=== PATIENT | female | born 1955 | race American Indian/Alaskan Native ===

== ENCOUNTER 2018-12-18 15:52 | Inpatient (IN) | payer MEDICAID ==
--- NOTE | 2018-12-18 17:35 | Event Note ---
ED Screening Note Date of service: 12/18/18 Time: 17:32 ED Screening Note: 63 y/o female comes in for right side abd pain. It started on the left side now migrated to the right. Has n/v. Has been out of her blood thinner. This initial assessment/diagnostic orders/clinical plan/treatment(s) is/are subject to change based on patients health status, clinical progression and re- assessment by fellow clinical providers in the ED. Further treatment and workup at subsequent clinical providers discretion. Patient/guardian urged not to elope from the ED as their condition may be serious if not clinically assessed and managed. Initial orders include:
[2018-12-18 18:13] LABS: Eosinophils # (Auto) 0.1 K/mm3 (0.0-0.4); Eosinophils % (Auto) 1.9 % (0.0-4.3); Lymphocytes # (Auto) 1.4 K/mm3 (1.2-5.4); Monocytes # (Auto) 0.4 K/mm3 (0.0-0.8); Monocytes % (Auto) 7.9 % (0.0-7.3)
[2018-12-18 18:28] LABS: Basophils % (Auto) 1.2 % (0.0-1.8); Hematocrit 47.1 % (30.3-42.9); Hemoglobin 15.3 gm/dl (10.1-14.3); Mean Corpuscular HGB Conc 33 % (30-34); Mean Corpuscular Volume 88 fl (79-97); Red Blood Count 5.36 M/mm3 (3.65-5.03); Red Cell Distribution Width 15.5 % (13.2-15.2)
[2018-12-18 19:25] LABS: Platelet Count 267 K/mm3 (140-440)
[2018-12-18 19:31] LABS: Bilirubin,Urine NEG (Negative); Blood,Urine NEG (Negative); Color,Urine Straw (Yellow); Protein,Urine <15 mg/dL mg/dL (Negative); Urobilinogen,Urine < 2.0 mg/dL (<2.0); WBC,Urine < 1.0 /HPF (0.0-6.0)
[2018-12-18 19:37] LABS: Amphetamine Screen,Urine PRESUMPTIVE NEGATIVE; Benzodiazepines Screen,Urine PRESUMPTIVE NEGATIVE; Cannabinoid Screen,Urine PRESUMPTIVE NEGATIVE; Cocaine Screen,Urine PRESUMPTIVE NEGATIVE; Methadone Screen,Urine PRESUMPTIVE NEGATIVE; Opiate Screen,Urine PRESUMPTIVE NEGATIVE
[2018-12-18] MEDS ORDERED: FAMOTIDINE 20 MG/2 ML INJ IV ONE (19:59)
[2018-12-18] MEDS ORDERED: ONDANSETRON 4 MG/2 ML INJ IV ONE (19:59)
[2018-12-18] MEDS ORDERED: DICYCLOMINE 20 MG TAB PO ONE (20:00)
[2018-12-18 20:12] LABS: Alanine Aminotransferase 20 units/L (7-56); Albumin 4.1 g/dL (3.9-5); BUN/Creatinine Ratio 22; Blood Urea Nitrogen 11 mg/dL (7-17); Calcium 9.1 mg/dL (8.4-10.2)
--- NOTE | 2018-12-18 21:32 | XRay Report ---
CHEST 2 VIEWS INDICATION / CLINICAL INFORMATION: chest pain. COMPARISON: None available. FINDINGS: SUPPORT DEVICES: None. HEART / MEDIASTINUM: No significant abnormality. LUNGS / PLEURA: Mild pulmonary vascular congestion. No evidence of pneumonia or significant pleural e ffusion. No pneumothorax. ADDITIONAL FINDINGS: No significant additional findings. IMPRESSION: 1. Mild pulmonary vascular congestion. Signer Name: Rita Zapien MD Signed: 12/18/2018 9:28 PM Workstation Name: [id number]
--- NOTE | 2018-12-19 00:47 | Ultrasound Report ---
ULTRASOUND ABDOMEN, LIMITED (RIGHT UPPER QUADRANT) INDICATION / CLINICAL INFORMATION: RUQ Pain. COMPARISON: None available. FINDINGS: PANCREAS: Visualized portion shows no significant abnormality. LIVER: No significant abnormality. GALLBLADDER: Several gallstones in the gallbladder with mild gallbladder wall thickening. BILE DUCTS: No significant abnormality. Common bile duct measures 1.1 mm. FREE FLUID: None. ADDITIONAL FINDINGS: None. IMPRESSION: 1. Cholelithiasis with mild gallbladder wall thickening. Signer Name: Holly Harden MD Signed: 12/19/2018 12:42 AM Workstation Name: [id number]
--- NOTE | 2018-12-19 01:56 | Emergency Department Report ---
<BEATRICE PENNY - Last Filed: 12/19/18 02:46> ED Abdominal Pain HPI - General Chief Complaint: Abdominal Pain Stated Complaint: RT SIDE/ABD PAIN/VOMITING Time Seen by Provider: 12/18/18 17:32 Source: patient Mode of arrival: Ambulatory Limitations: No Limitations - History of Present Illness Initial Comments: Patient is a 63-year-old [place] female with a history of hypertension who presents to the ED with complaint of acute onset persistent severe right upper quadrant pain with nausea and vomiting for the last 1 week, worse in the last 24 hours. Patient states that the pain is worse with food, and that it radiates to the right flank. Patient denies fever, chills, dizziness, chest pain, shortness of breath, back pain, change in vision, diarrhea, nasal and sinus congestion or cough. MD Complaint: abdominal pain, other (nausea and vomiting) -: Sudden, week(s) (1) Location: RUQ Radiation: RUQ, R flank Migration to: no migration Severity scale (0 -10): 7 Quality: aching, sharp Consistency: constant Improves With: nothing Worsens With: eating, vomiting Associated Symptoms: denies other symptoms, nausea, vomiting. denies: diarrhea, fever, chills, constipation, dysuria, hematemesis, hematochezia, melena, anorexia, syncope - Related Data Home Medications Medication Instructions Recorded Confirmed Last Taken Cyclobenzaprine [Flexeril] 10 mg PO BID 12/19/18 12/19/18 Unknown Ferrous Sulfate [Iron 325 MG] 325 mg PO BID 12/19/18 12/19/18 Unknown Gabapentin [Neurontin] 600 mg PO TID 12/19/18 12/19/18 Unknown Pantoprazole [Protonix] 40 mg PO BID 12/19/18 12/19/18 Unknown Rivaroxaban [Xarelto] 20 mg PO QDAY 12/19/18 12/19/18 Unknown Allergies Allergy/AdvReac Type Severity Reaction Status Date / Time ibuprofen Allergy Unknown Verified 12/18/18 17:36 ED Review of Systems Constitutional: denies: chills, fever Eyes: denies: eye pain, eye discharge, vision change ENT: denies: ear pain, throat pain Respiratory: denies: cough, shortness of breath, wheezing Cardiovascular: denies: chest pain, palpitations Endocrine: no symptoms reported Gastrointestinal: abdominal pain, nausea, vomiting. denies: diarrhea Genitourinary: denies: urgency, dysuria, discharge Musculoskeletal: denies: back pain, joint swelling, arthralgia Skin: denies: rash, lesions Neurological: denies: headache, weakness, paresthesias Psychiatric: denies: anxiety, depression Hematological/Lymphatic: denies: easy bleeding, easy bruising ED Past Medical Hx - Past Medical History Hx Hypertension: Yes Hx GERD: Yes Hx Psychiatric Treatment: Yes (drug abuse, h/o crack cocaine use) Additional medical history: chronic back pain, bilateral leg problem, DVT'S,anemia,neuropathy, - Surgical History Past Surgical History?: Yes Additional Surgical History: tubiligation, right ovary, abd abscess - Social History Smoking Status: Current Every Day Smoker - Medications Home Medications: Home Medications Medication Instructions Recorded Confirmed Last Taken Type Cyclobenzaprine [Flexeril] 10 mg PO BID 12/19/18 12/19/18 Unknown History Ferrous Sulfate [Iron 325 MG] 325 mg PO BID 12/19/18 12/19/18 Unknown History Gabapentin [Neurontin] 600 mg PO TID 12/19/18 12/19/18 Unknown History Pantoprazole [Protonix] 40 mg PO BID 12/19/18 12/19/18 Unknown History Rivaroxaban [Xarelto] 20 mg PO QDAY 12/19/18 12/19/18 Unknown History ED Physical Exam - General Limitations: No Limitations General appearance: alert, in no apparent distress - Head Head exam: Present: atraumatic, normocephalic, normal inspection - Eye Eye exam: Present: normal appearance, PERRL, EOMI Pupils: Present: normal accommodation - ENT ENT exam: Present: normal exam, normal orophraynx, mucous membranes moist, TM's normal bilaterally, normal external ear exam - Neck Neck exam: Present: normal inspection, full ROM - Respiratory Respiratory exam: Present: normal lung sounds bilaterally. Absent: respiratory distress, wheezes, rales, rhonchi, chest wall tenderness, accessory muscle use, decreased breath sounds, prolonged expiratory - Cardiovascular Cardiovascular Exam: Present: regular rate, normal rhythm, normal heart sounds. Absent: systolic murmur, diastolic murmur, rubs, gallop - GI/Abdominal GI/Abdominal exam: Present: soft, tenderness (palpable right upper quadrant tenderness with positive Dc sign), guarding, normal bowel sounds. Absent: rebound, hyperactive bowel sounds, hypoactive bowel sounds, organomegaly, mass - Extremities Exam Extremities exam: Present: normal inspection, full ROM, normal capillary refill - Back Exam Back exam: Present: normal inspection, full ROM. Absent: tenderness, CVA tenderness (R), CVA tenderness (L), muscle spasm, paraspinal tenderness - Neurological Exam Neurological exam: Present: alert, oriented X3, CN II-XII intact, normal gait, reflexes normal - Psychiatric Psychiatric exam: Present: normal affect, normal mood - Skin Skin exam: Present: warm, dry, intact, normal color. Absent: rash ED Course - Reevaluation(s) Reevaluation #1: 12/19/18 01:53 This is a 63-year-old female who presented to the ED with right upper quadrant pain with nausea and vomiting. In the ED, patient is alert and oriented 3 and is not in any distress. Lab test results were reviewed and are all nonactionable including urinalysis. Right upper quadrant ultrasound shows cholelithiasis with mild gallbladder wall thickening consistent with acute cholecystitis. Patient was treated for pain in the ED and also treated for nausea and vomiting, and also given antacids. Chest x-ray shows no acute cardio pulmonary abnormalities. Patient's case was discussed with the ED attending physician Dr. Bliss who also evaluated the patient and agreed with the plan of care. Dr. Bliss paged and discussed the patient's case with the general surgeon senior radiation protection technician Dr. Keith who advised that the patient be admitted to the hospital by the hospitalist physician on-call for further evaluation and subsequent surgical consult by Dr. Keith in the morning. Dr. Bliss thereafter discussed the patient's case with the hospitalist physician Dr. Méndez who admitted the patient to the hospital. ED Medical Decision Making - Lab Data Result diagrams: 12/18/18 17:47 12/18/18 18:40 - Radiology Data Radiology results: report reviewed, image reviewed - Medical Decision Making This is a 63-year-old female who presented to the ED with right upper quadrant pain with nausea and vomiting. In the ED, patient is alert and oriented 3 and is not in any distress. Lab test results were reviewed and are all nonactionable including urinalysis. Right upper quadrant ultrasound shows cholelithiasis with mild gallbladder wall thickening consistent with acute cholecystitis. Patient was treated for pain in the ED and also treated for nausea and vomiting, and also given antacids. Chest x-ray shows no acute cardio pulmonary abnormalities. Patient's case was discussed with the ED attending physician Dr. Bliss who also evaluated the patient and agreed with the plan of care. Dr. Bliss paged and discussed the patient's case with the general surgeon senior radiation protection technician Dr. Keith who advised that the patient be admitted to the hospital by the hospitalist physician on-call for further evaluation and subsequent surgical consult by Dr. Keith in the morning. Dr. Bliss thereafter discussed the patient's case with the hospitalist physician Dr. Méndez who admitted the patient to the hospital. - Differential Diagnosis Abdominal pain; Kidney stones; Gallstones; Cholecystitis; ACS; Pneumonia Critical Care Time: Yes Critical care time in (mins) excluding proc time.: 35 ED Disposition Clinical Impression: Acute abdominal pain in right upper quadrant, Nausea and vomiting in adult Cholelithiasis with acute cholecystitis Qualifiers: Biliary obstruction: without biliary obstruction Qualified Code(s): K80.00 - Calculus of gallbladder with acute cholecystitis without obstruction Disposition: OP ADMIT IP TO THIS HOSP Is pt being admited?: Yes Does the pt Need Aspirin: No Condition: Critical Referrals: PRIMARY CARE,MD [Primary Care Provider] - 3-5 Days Time of Disposition: 01:58 <SARKIS BLISS III - Last Filed: 12/19/18 03:14> ED Review of Systems ROS: Stated complaint: RT SIDE/ABD PAIN/VOMITING Other details as noted in HPI ED Course Vital Signs 12/19/18 02:47 Temperature 98.5 F Pulse Rate 74 Respiratory 16 Rate Blood Pressure 138/74 [Left] O2 Sat by Pulse 100 Oximetry - Reevaluation(s) Reevaluation #2: I examined the patient. Patient is tender at the right upper quadrant. I reviewed all results with patient. I discussed plan of care with patient. Patient agrees with plan of care. 12/19/18 02:01 Reevaluation #3: I discussed plan of care and admission with patient. Patient agrees with plan of care and admission 12/19/18 02:19 - Consultations Consultation #1: I discussed case with Dr. Keith. Dr. Keith wants patient to be admitted to the hospitalist service and NPO . 12/19/18 02:18 Consultation #2: Hospitalist consult for admission. Hospitalist to admit patient. 12/19/18 02:25 ED Medical Decision Making - Lab Data Result diagrams: 12/18/18 17:47 12/18/18 18:40 Critical care attestation.: If time is entered above; I have spent that time in minutes in the direct care of this critically ill patient, excluding procedure time. Critical Care Time: 35 minutes ED Disposition Is pt being admited?: Yes Does the pt Need Aspirin: No Time of Disposition: 02:22
[2018-12-19] MEDS ORDERED: METOCLOPRAMIDE 10 MG/2 ML INJ IV PRN (02:26)
[2018-12-19] MEDS ORDERED: ONDANSETRON 4 MG/2 ML INJ IV PRN (02:26)
[2018-12-19] MEDS ORDERED: ACETAMINOPHEN 325 MG TAB PO PRN (02:26)
[2018-12-19] MEDS ORDERED: HYDROmorphone 1 MG/1 ML INJ IV PRN (02:26)
--- NOTE | 2018-12-19 02:42 | History and Physical Report ---
History of Present Illness Date of examination: 12/19/18 Date of admission: 12/19/2018 Chief complaint: Acute abdominal pain History of present illness: 63-year-old -[place] female with history of hypertension, GERD, crack/cocaine abuse, chronic back pain, DVT on Xarelto who presents to [facility] ED with complaints of abdominal pain, nausea and vomiting for the past week. Patient states that over the past week she has been experiencing right upper quadrant sharp abdominal pain, intermittent nausea and vomiting. Her symptoms worsened this morning and the pain became intense with radiation to right flank. She rates the pain 9/10 and is worse with palpation, and relieved with rest and pain medication. Denies; fever, diarrhea, dysuria, chest pain, or SOB Past History Past Medical History: anemia, DVT, GERD, hypertension, other (back pain, bilateral leg problem, neuropathy,) Past Surgical History: Other (tubiligation, right ovary, abd abscess) Social history: lives with family (daughter), smoking (current every day smoker), other (history of crack/cocaine abuse) Family history: no significant family history Medications and Allergies Allergies Allergy/AdvReac Type Severity Reaction Status Date / Time ibuprofen Allergy Unknown Verified 12/18/18 17:36 Home Medications Medication Instructions Recorded Confirmed Last Taken Type Cyclobenzaprine [Flexeril] 10 mg PO BID 12/19/18 12/19/18 Unknown History Ferrous Sulfate [Iron 325 MG] 325 mg PO BID 12/19/18 12/19/18 Unknown History Gabapentin [Neurontin] 600 mg PO TID 12/19/18 12/19/18 Unknown History Pantoprazole [Protonix] 40 mg PO BID 12/19/18 12/19/18 Unknown History Rivaroxaban [Xarelto] 20 mg PO QDAY 12/19/18 12/19/18 Unknown History Active Meds: Active Medications Acetaminophen (Tylenol) 650 mg PO Q4H PRN PRN Reason: Pain MILD(1-3)/Fever >100.5/SCHUSTER Enoxaparin Sodium (Lovenox) 40 mg SUB-Q QDAY BRYANT Hydromorphone HCl (Dilaudid) 0.5 mg IV Q3H PRN PRN Reason: Pain , Severe (7-10) Piperacillin Sod/Tazobactam Sod (Zosyn/Ns 3.375gm/50ml) 3.375 gm in 50 mls @ 100 mls/hr IV ONCE ONE; Protocol Stop: 12/19/18 03:29 Sodium Chloride (Nacl 0.9% 1000 Ml) 1,000 mls @ 100 mls/hr IV DIRECT BRYANT Piperacillin Sod/Tazobactam Sod (Zosyn/Ns 3.375gm/50ml) 3.375 gm in 50 mls @ 100 mls/hr IV Q8HR BRYANT; Protocol Metoclopramide HCl (Reglan) 10 mg IV Q6H PRN PRN Reason: Nausea And Vomiting Morphine Sulfate (Morphine) 2 mg IV Q4H PRN PRN Reason: Pain, Moderate (4-6) Nicotine (Habitrol) 14 mg TD QDAY BRYANT Ondansetron HCl (Zofran) 4 mg IV Q8H PRN PRN Reason: Nausea And Vomiting Sodium Chloride (Sodium Chloride Flush Syringe 10 Ml) 10 ml IV BID BRYANT Sodium Chloride (Sodium Chloride Flush Syringe 10 Ml) 10 ml IV PRN PRN PRN Reason: LINE FLUSH Review of Systems Gastrointestinal: abdominal pain, nausea, vomiting Exam - Physical Exam Narrative exam: Physical exam General appearance: Present: No acute distress, alert and oriented 3, adult -[place] female - EENT Eyes: Present: PERRL, EOM intact, ENT: hearing intact, missing teeth - Neck Neck: Present: supple, normal ROM - Respiratory Respiratory effort: Non-labored Respiratory: CTA - Cardiovascular Heart rate: 74 (bpm) Rhythm: SR Heart Sounds: Present: S1,S2 - Extremities Extremities: no ischemia, pulses intact, - Peripheral Assessment Peripheral Pulses: within normal limits - Abdominal General gastrointestinal: soft, RUQ tenderness, normal bowel sounds - Integumentary Integumentary: Present: warm, dry, - Musculoskeletal Musculoskeletal: Able to move all extremities, -Neurological Neurological: CN II-XII grossly intact - Psychiatric Psychiatric: cooperative Results - Labs CBC & Chem 7: 12/18/18 17:47 12/18/18 18:40 Labs: Laboratory Last Values WBC 4.2 K/mm3 (4.5-11.0) L 12/18/18 17:47 RBC 5.36 M/mm3 (3.65-5.03) H 12/18/18 17:47 Hgb 15.3 gm/dl (10.1-14.3) H 12/18/18 17:47 Hct 47.1 % (30.3-42.9) H 12/18/18 17:47 MCV 88 fl (79-97) 12/18/18 17:47 MCH 29 pg (28-32) 12/18/18 17:47 MCHC 33 % (30-34) 12/18/18 17:47 RDW 15.5 % (13.2-15.2) H 12/18/18 17:47 Plt Count 267 K/mm3 (140-440) 12/18/18 17:47 Lymph % (Auto) 32.0 % (13.4-35.0) 12/18/18 17:47 [place] % (Auto) 7.9 % (0.0-7.3) H 12/18/18 17:47 Eos % (Auto) 1.9 % (0.0-4.3) 12/18/18 17:47 Baso % (Auto) 1.2 % (0.0-1.8) 12/18/18 17:47 Lymph # 1.4 K/mm3 (1.2-5.4) 12/18/18 17:47 [place] # 0.4 K/mm3 (0.0-0.8) 12/18/18 17:47 Eos # 0.1 K/mm3 (0.0-0.4) 12/18/18 17:47 Baso # 0.0 K/mm3 (0.0-0.1) 12/18/18 17:47 Seg Neutrophils % 57.3 % (40.0-70.0) 12/18/18 17:47 Seg Neutrophils # 2.5 K/mm3 (1.8-7.7) 12/18/18 17:47 Sodium 139 mmol/L (137-145) 12/18/18 18:40 Potassium 5.7 mmol/L (3.6-5.0) H 12/18/18 18:40 Chloride 104 mmol/L (98-107) 12/18/18 18:40 Carbon Dioxide 26 mmol/L (22-30) 12/18/18 18:40 Anion Gap 15 mmol/L 12/18/18 18:40 BUN 11 mg/dL (7-17) 12/18/18 18:40 Creatinine 0.5 mg/dL (0.7-1.2) L 12/18/18 18:40 Estimated GFR > 60 ml/min 12/18/18 18:40 BUN/Creatinine Ratio 22 % 12/18/18 18:40 Glucose 93 mg/dL (65-100) 12/18/18 18:40 Calcium 9.1 mg/dL (8.4-10.2) 12/18/18 18:40 Total Bilirubin 0.20 mg/dL (0.1-1.2) 12/18/18 18:40 AST 35 units/L (5-40) 12/18/18 18:40 ALT 20 units/L (7-56) 12/18/18 18:40 Alkaline Phosphatase 85 units/L (35-129) 12/18/18 18:40 Troponin T < 0.010 ng/mL (0.00-0.029) 12/19/18 00:29 NT-Pro-B Natriuret Pep 424.1 pg/mL (0-900) 12/18/18 20:05 Total Protein 8.3 g/dL (6.3-8.2) H 12/18/18 18:40 Albumin 4.1 g/dL (3.9-5) 12/18/18 18:40 Albumin/Globulin Ratio 1.0 % 12/18/18 18:40 Urine Color Straw (Yellow) 12/18/18 18:59 Urine Turbidity Clear (Clear) 12/18/18 18:59 Urine pH 7.0 (5.0-7.0) 12/18/18 18:59 Ur Specific [place] 1.014 (1.003-1.030) 12/18/18 18:59 Urine Protein <15 mg/dl mg/dL (Negative) 12/18/18 18:59 Urine Glucose (UA) Neg mg/dL (Negative) 12/18/18 18:59 Urine Ketones Neg mg/dL (Negative) 12/18/18 18:59 Urine Blood Neg (Negative) 12/18/18 18:59 Urine Nitrite Neg (Negative) 12/18/18 18:59 Urine Bilirubin Neg (Negative) 12/18/18 18:59 Urine Urobilinogen < 2.0 mg/dL (<2.0) 12/18/18 18:59 Ur Leukocyte Esterase Neg (Negative) 12/18/18 18:59 Urine WBC (Auto) < 1.0 /HPF (0.0-6.0) 12/18/18 18:59 Urine RBC (Auto) 1.0 /HPF (0.0-6.0) 12/18/18 18:59 U Epithel Cells (Auto) 1.0 /HPF (0-13.0) 12/18/18 18:59 Urine Opiates Screen Presumptive negative 12/18/18 Unknown Urine Methadone Screen Presumptive negative 12/18/18 Unknown Ur Barbiturates Screen Presumptive negative 12/18/18 Unknown Ur Phencyclidine Scrn Presumptive negative 12/18/18 Unknown Ur Amphetamines Screen Presumptive negative 12/18/18 Unknown U Benzodiazepines Scrn Presumptive negative 12/18/18 Unknown Urine Cocaine Screen Presumptive negative 12/18/18 Unknown U Marijuana (THC) Screen Presumptive negative 12/18/18 Unknown Drugs of Abuse Note Disclamer 12/18/18 Unknown - Imaging and Cardiology Imaging and Cardiology: US Abdomen: FINDINGS: PANCREAS: Visualized portion shows no significant abnormality. LIVER: No significant abnormality. GALLBLADDER: Several gallstones in the gallbladder with mild gallbladder wall thickening. BILE DUCTS: No significant abnormality. Common bile duct measures 1.1 mm. FREE FLUID: None. ADDITIONAL FINDINGS: None. IMPRESSION: 1. Cholelithiasis with mild gallbladder wall thickening. CXR: FINDINGS: SUPPORT DEVICES: None. HEART / MEDIASTINUM: No significant abnormality. LUNGS / PLEURA: Mild pulmonary vascular congestion. No evidence of pneumonia or significant pleural effusion. No pneumothorax. ADDITIONAL FINDINGS: No significant additional findings. IMPRESSION: 1. Mild pulmonary vascular congestion. Assessment and Plan Assessment and plan: 63-year-old -[place] female with history of hypertension, GERD, crack/cocaine abuse, chronic back pain, DVT on Xarelto who presents to [facility] ED with complaints of abdominal pain, nausea and vomiting for the past week. Acute Cholelithiasis -US Abdomen showed Cholelithiasis with mild gallbladder wall thickening -Continue supportive care -On IVF -NPO Suspected Cholecystitis -Based off clinical presentation -On IVF and IV Abx -Continue supportive care -General Surgery consulted with plans to see pt today HTN -Monitor BP -Currently not on antihypertensive meds GERD -On PPI Hyperkalemia -5.7 on admission -Will start on IV fluids -Repeat labs later this morning -Continue to monitor electrolytes Tobacco abuse -Smokes 5-10 cigarette per day -Counseled for cessation -Nicotine patch when necessary Hx DVT -On Xarelto -Will hold for now, pending recommendation from General Surgery Hx Crack/Cocaine Abuse -UDS negative Advance Directives: No VTE prophylaxis?: Chemical Plan of care discussed with patient/family: Yes
[2018-12-19] MEDS ORDERED: hydrALAZINE 20 MG/1 ML INJ IV PRN (02:51)
--- NOTE | 2018-12-19 02:54 | Event Note ---
63-year-old woman history of hypertension who presents to the hospital with right upper quadrant pain and vomiting x1 week, has been progressive and has severely gotten worse in the last day. Labs show hemoglobin of 15, potassium 5.7, troponin negative x2, total protein is 8.3 with albumin of 4.1 chest x-ray; mild pulmonary venous congestion Ultrasound abdomen; cholelithiasis with mild gallbladder wall thickening cholelithiasis Clinical presentation is suspicious for cholecystitis. General surgery consulted, keep n.p.o., IV antibiotics Hyperkalemia Trial of management with IV fluids, repeat potassium this a.m. Tobacco abuse/dependence Smoking cessation counseling performed for 10 minutes, nicotine patches when necessary History of multiple DVTs Rivaroxaban on hold as patient may go for surgery, should be restarted afterwards Hypertension, Optimize BP meds DVT prophylaxis; Lovenox for now, rivaroxaban on hold, will be re-started after patient has been evaluated for surgery
[2018-12-19] MEDS ORDERED: PIPERACILLIN/TAZOBACTAM 3.375 3.375 GM/50 ML BAG IV ONE (03:00)
[2018-12-19] MEDS: MORPHINE 2 MG/1 ML INJ IV PRN ×2 (05:38→23:51)
[2018-12-19] MEDS: SODIUM CHLORIDE 0.9% 1000 ML 1,000 ML IV SCH (05:50)
[2018-12-19] MEDS: GABAPENTIN 300 MG CAP PO SCH ×3 (08:58→21:31)
[2018-12-19] MEDS: CYCLOBENZAPRINE 10 MG TAB PO SCH ×2 (10:00→21:31)
[2018-12-19] MEDS: PANTOPRAZOLE 40 MG TAB PO SCH ×2 (10:04→21:32)
[2018-12-19] MEDS: FERROUS SULFATE 325 MG TAB PO SCH ×2 (10:06→21:31)
--- NOTE | 2018-12-19 10:19 | Consultation ---
History of Present Illness Consult date: 12/19/18 Reason for consult: abdominal pain Chief complaint: abdominal pain - History of present illness History of present illness: 63 yo F with hx of cocaine/crack abuse who is currently in rehab center presents to ER with c/o several days of RUQ abdominal pain, sharp, nonradiating. She has never pain like before. She states she ate a cheese albanian for dinner and the pain started shortly after. + nausea, no vomiting. No f/c, cp, sob. She is hungry today. Pain has dulled slightly. Patient has hx of LLE DVT. She has not taken xarelto since October. Past History Past Medical History: anemia, DVT, GERD, hypertension, other (back pain, bilateral leg problem, neuropathy,) Past Surgical History: Other (tubiligation, right ovary, abd tumors) Social history: lives with family (daughter), smoking (current every day smok er), other (history of crack/cocaine abuse) Family history: no significant family history Medications and Allergies Allergies Allergy/AdvReac Type Severity Reaction Status Date / Time ibuprofen Allergy Unknown Verified 12/18/18 17:36 Home Medications Medication Instructions Recorded Confirmed Last Taken Type Cyclobenzaprine [Flexeril] 10 mg PO BID 12/19/18 12/19/18 Unknown History Ferrous Sulfate [Iron 325 MG] 325 mg PO BID 12/19/18 12/19/18 Unknown History Gabapentin [Neurontin] 600 mg PO TID 12/19/18 12/19/18 Unknown History Pantoprazole [Protonix] 40 mg PO BID 12/19/18 12/19/18 Unknown History Rivaroxaban [Xarelto] 20 mg PO QDAY 12/19/18 12/19/18 Unknown History Active Meds: Active Medications Acetaminophen (Tylenol) 650 mg PO Q4H PRN PRN Reason: Pain MILD(1-3)/Fever >100.5/SCHUSTER Cyclobenzaprine HCl (Flexeril) 10 mg PO BID BRYANT Enoxaparin Sodium (Lovenox) 40 mg SUB-Q QDAY BRYANT Ferrous Sulfate (Feosol) 325 mg PO BID BRYANT Gabapentin (Neurontin) 600 mg PO TID BRYANT Hydralazine HCl (Apresoline) 10 mg IV Q4H PRN PRN Reason: BP >160/100 Hydromorphone HCl (Dilaudid) 0.5 mg IV Q3H PRN PRN Reason: Pain , Severe (7-10) Sodium Chloride (Nacl 0.9% 1000 Ml) 1,000 mls @ 100 mls/hr IV DIRECT BRYANT Last Admin: 12/19/18 05:50 Dose: 100 mls/hr Documented by: Piperacillin Sod/Tazobactam Sod (Zosyn/Ns 3.375gm/50ml) 3.375 gm in 50 mls @ 100 mls/hr IV Q8H BRYANT; Protocol Metoclopramide HCl (Reglan) 10 mg IV Q6H PRN PRN Reason: Nausea And Vomiting Morphine Sulfate (Morphine) 2 mg IV Q4H PRN PRN Reason: Pain, Moderate (4-6) Last Admin: 12/19/18 05:38 Dose: 2 mg Documented by: Nicotine (Habitrol) 14 mg TD QDAY BRYANT Ondansetron HCl (Zofran) 4 mg IV Q8H PRN PRN Reason: Nausea And Vomiting Pantoprazole Sodium (Protonix) 40 mg PO BID BRYANT Sodium Chloride (Sodium Chloride Flush Syringe 10 Ml) 10 ml IV BID BRYANT Sodium Chloride (Sodium Chloride Flush Syringe 10 Ml) 10 ml IV PRN PRN PRN Reason: LINE FLUSH Review of Systems All systems: negative (10 pt ROS performed and negative except for that listed in HPI) Exam Vital Signs Temp Pulse Resp BP Pulse Ox 98.5 F 74 16 138/74 100 12/19/18 02:47 12/19/18 02:47 12/19/18 02:47 12/19/18 02:47 12/19/18 02:47 Narrative exam: Gen: AAOx3. NAD ENT: no scleral icterus or conjunctival pallor CV; S1, S2+ Resp: even and unlabored Abd: soft, ND, + RUQ TTP. No r/r/g. Well healed lower midline abdominal scars Ext: no c/c/e Results - Labs 12/18/18 17:47 12/19/18 04:06 Abnormal lab results 12/18/18 12/18/18 Range/Units 17:47 18:40 WBC 4.2 L (4.5-11.0) K/mm3 RBC 5.36 H (3.65-5.03) M/mm3 Hgb 15.3 H (10.1-14.3) gm/dl Hct 47.1 H (30.3-42.9) % RDW 15.5 H (13.2-15.2) % [place] % (Auto) 7.9 H (0.0-7.3) % Potassium 5.7 H (3.6-5.0) mmol/L Creatinine 0.5 L (0.7-1.2) mg/dL Total Protein 8.3 H (6.3-8.2) g/dL Diabetes panel 12/18/18 12/19/18 Range/Units 18:40 04:06 Sodium 139 (137-145) mmol/L Potassium 5.7 H 3.7 D (3.6-5.0) mmol/L Chloride 104 (98-107) mmol/L Carbon Dioxide 26 (22-30) mmol/L BUN 11 (7-17) mg/dL Creatinine 0.5 L (0.7-1.2) mg/dL Glucose 93 (65-100) mg/dL Calcium 9.1 (8.4-10.2) mg/dL AST 35 (5-40) units/L ALT 20 (7-56) units/L Alkaline Phosphatase 85 (35-129) units/L Total Protein 8.3 H (6.3-8.2) g/dL Albumin 4.1 (3.9-5) g/dL Calcium panel 12/18/18 Range/Units 18:40 Calcium 9.1 (8.4-10.2) mg/dL Albumin 4.1 (3.9-5) g/dL Pituitary panel 12/18/18 12/19/18 Range/Units 18:40 04:06 Sodium 139 (137-145) mmol/L Potassium 5.7 H 3.7 D (3.6-5.0) mmol/L Chloride 104 (98-107) mmol/L Carbon Dioxide 26 (22-30) mmol/L BUN 11 (7-17) mg/dL Creatinine 0.5 L (0.7-1.2) mg/dL Glucose 93 (65-100) mg/dL Calcium 9.1 (8.4-10.2) mg/dL Adrenal panel 12/18/18 12/19/18 Range/Units 18:40 04:06 Sodium 139 (137-145) mmol/L Potassium 5.7 H 3.7 D (3.6-5.0) mmol/L Chloride 104 (98-107) mmol/L Carbon Dioxide 26 (22-30) mmol/L BUN 11 (7-17) mg/dL Creatinine 0.5 L (0.7-1.2) mg/dL Glucose 93 (65-100) mg/dL Calcium 9.1 (8.4-10.2) mg/dL Total Bilirubin 0.20 (0.1-1.2) mg/dL AST 35 (5-40) units/L ALT 20 (7-56) units/L Alkaline Phosphatase 85 (35-129) units/L Total Protein 8.3 H (6.3-8.2) g/dL Albumin 4.1 (3.9-5) g/dL - Imaging US - abdomen: report reviewed, image reviewed Assessment and Plan 63 yo F with acute cholecystitis U/s abd images and report reviewed Plan: 1. may start clear liquid diet, NPO p MN tonight 2. IVF 3. prn pain and nausea control 4. DVT ppx 5. IV abx - zosyn 6. recommend cholecystectomy - All risks, benefits, alternatives to surgery discussed with patient and questions answered. Consent obtained for robotic assisted cholecystectomy, possible open, possible cholangiogram. Next available time in OR is tomorrow 12/20/18 - pt added to schedule. Thank you, please call with questions. Dr. Saucedo will be rounding Sunday through Sunday.
[2018-12-19] MEDS: PIPERACILLIN/TAZOBACTAM 3.375 3.375 GM/50 ML BAG IV SCH ×2 (11:07→21:32)
[2018-12-19] MEDS: ENOXAPARIN 40 MG/0.4 ML INJ SUB-Q SCH (13:00)
[2018-12-19] MEDS: NICOTINE 14 MG/24 HR PATCH TD SCH (14:03)
--- NOTE | 2018-12-19 14:46 | Event Note ---
Date: 12/19/18 Patient with acute cholecystitis. I have seen and examined her. For cholecystectomy tomorrow.
[2018-12-20] MEDS: PIPERACILLIN/TAZOBACTAM 3.375 3.375 GM/50 ML BAG IV SCH ×3 (03:14→17:52)
[2018-12-20] MEDS: SODIUM CHLORIDE 0.9% 1000 ML 1,000 ML IV SCH (06:33)
[2018-12-20] MEDS: MORPHINE 2 MG/1 ML INJ IV PRN (06:34)
[2018-12-20 07:17] LABS: Basophils # (Auto) 0.1 K/mm3 (0.0-0.1); Basophils % (Auto) 1.4 % (0.0-1.8); Eosinophils % (Auto) 1.3 % (0.0-4.3); Hematocrit 47.9 % (30.3-42.9); Hemoglobin 16.1 gm/dl (10.1-14.3); Lymphocytes # (Auto) 1.6 K/mm3 (1.2-5.4); Mean Corpuscular HGB Conc 34 % (30-34); Mean Corpuscular Volume 86 fl (79-97); Monocytes # (Auto) 0.3 K/mm3 (0.0-0.8); Monocytes % (Auto) 8.8 % (0.0-7.3); Platelet Count 285 K/mm3 (140-440); Red Blood Count 5.55 M/mm3 (3.65-5.03); Red Cell Distribution Width 15.6 % (13.2-15.2)
[2018-12-20 07:41] LABS: BUN/Creatinine Ratio 12; Blood Urea Nitrogen 7 mg/dL (7-17); Calcium 9.7 mg/dL (8.4-10.2); Hemolysis Index 170
--- NOTE | 2018-12-20 08:04 | Progress Note ---
Assessment and Plan - Patient Problems (1) Cholelithiasis with acute cholecystitis Current Visit: Yes Status: Acute Qualifiers: Biliary obstruction: without biliary obstruction Qualified Code(s): K80.00 - Calculus of gallbladder with acute cholecystitis without obstruction Plan to address problem: Pt stable. scheduled for robotic cholecystectomy this afternoon. keep NPO. All questions answered. Please call with questions. time=10min Subjective Date of service: 12/20/18 Patient Reports: Positive: no new complaints, still having pain (right side of abdomen) Objective Vital Signs - 12hr 12/19/18 12/19/18 12/19/18 21:32 22:00 23:51 Temperature Pulse Rate 78 Respiratory 17 Rate Respiratory 17 Rate [right abd ] Blood Pressure 172/89 O2 Sat by Pulse Oximetry 12/20/18 12/20/18 12/20/18 00:12 00:21 01:11 Temperature 98.7 F Pulse Rate 82 Respiratory 20 17 17 Rate Respiratory Rate [right abd ] Blood Pressure 163/83 O2 Sat by Pulse 98 Oximetry 12/20/18 12/20/18 12/20/18 04:41 06:34 07:04 Temperature 98.2 F Pulse Rate 79 Respiratory 18 17 17 Rate Respiratory Rate [right abd ] Blood Pressure 126/78 O2 Sat by Pulse 95 Oximetry - General physical appearance no distress, no pain - Eyes normal occular movement - Respiratory normal expansion, normal respiratory effort - Abdomen soft, tender (mild on right side), not distended, not guarding, not rigid - Integumentary no rash, no growths, no abnormal pigmentation - Psychiatric oriented to time, oriented to person, oriented to place, speech is normal, memory intact - Labs 12/20/18 06:57 12/20/18 06:57 Diabetes panel 12/20/18 Range/Units 06:57 Sodium 140 (137-145) mmol/L Chloride 103.4 (98-107) mmol/L Carbon Dioxide 22 (22-30) mmol/L BUN 7 (7-17) mg/dL Creatinine 0.6 L (0.7-1.2) mg/dL Glucose 86 (65-100) mg/dL Calcium 9.7 (8.4-10.2) mg/dL Calcium panel 12/20/18 Range/Units 06:57 Calcium 9.7 (8.4-10.2) mg/dL Pituitary panel 12/20/18 Range/Units 06:57 Sodium 140 (137-145) mmol/L Chloride 103.4 (98-107) mmol/L Carbon Dioxide 22 (22-30) mmol/L BUN 7 (7-17) mg/dL Creatinine 0.6 L (0.7-1.2) mg/dL Glucose 86 (65-100) mg/dL Calcium 9.7 (8.4-10.2) mg/dL Adrenal panel 12/20/18 Range/Units 06:57 Sodium 140 (137-145) mmol/L Chloride 103.4 (98-107) mmol/L Carbon Dioxide 22 (22-30) mmol/L BUN 7 (7-17) mg/dL Creatinine 0.6 L (0.7-1.2) mg/dL Glucose 86 (65-100) mg/dL Calcium 9.7 (8.4-10.2) mg/dL
[2018-12-20] MEDS: GABAPENTIN 300 MG CAP PO SCH ×3 (08:31→22:04)
--- NOTE | 2018-12-20 09:18 | Anesthesia Consultation ---
Anesthesia Consult and Med Hx Date of service: 12/20/18 - Airway Anesthetic Teeth Evaluation: Edentulous ROM Head & Neck: Adequate Mental/Hyoid Distance: Adequate Mallampati Class: Class II Intubation Access Assessment: Probably Good - Pre-Operative Health Status ASA Pre-Surgery Classification: ASA3 Proposed Anesthetic Plan: General - Pulmonary Hx Smoking: Yes (1 p/d x 50 years, 1/2 p/d in the last two years) Hx Asthma: No Hx Respiratory Symptoms: Yes (uses inhalers on the rare ocasions) COPD: No Hx Pneumonia: No - Cardiovascular System Hx Hypertension: Yes Hx Peripheral Vascular Disease: Yes (h/o DVT, on Xarelto) - Central Nervous System Hx Neuromuscular Disorder: Yes (peripheral neuropathy) Hx Back Pain: Yes Hx Psychiatric Problems: No - Gastrointestinal Hx Gastroesophageal Reflux Disease: Yes - Endocrine Hx End Stage Renal Disease: No Hx Liver Disease: Yes (gallbladder stones) Hx Thyroid Disease: Yes - Other Systems Hx Substance Use: Yes (h/o of cocane abuse)
--- NOTE | 2018-12-20 09:19 | Anesthesia Day of Surgery ---
Anesthesia Day of Surgery - Day of Surgery Patient Examined: Yes Patient H&P Reviewed: Yes Patient is NPO: Yes
[2018-12-20] MEDS: NICOTINE 14 MG/24 HR PATCH TD SCH (09:41)
[2018-12-20] MEDS: ENOXAPARIN 40 MG/0.4 ML INJ SUB-Q SCH (09:42)
[2018-12-20] MEDS: CYCLOBENZAPRINE 10 MG TAB PO SCH ×2 (09:42→22:05)
[2018-12-20] MEDS: PANTOPRAZOLE 40 MG TAB PO SCH ×2 (09:42→22:44)
[2018-12-20] MEDS: FERROUS SULFATE 325 MG TAB PO SCH ×2 (09:42→22:42)
--- NOTE | 2018-12-20 10:27 | Progress Note ---
Assessment and Plan Assessment and plan: 63-year-old -[place] female with history of hypertension, GERD, crack/cocaine abuse, chronic back pain, DVT on Xarelto who presents to [facility] ED with complaints of abdominal pain, nausea and vomiting for the past week. Acute Cholelithiasis -US Abdomen showed Cholelithiasis with mild gallbladder wall thickening -Continue supportive care -On IVF -NPO -For cholecystectomy today HTN -Monitor BP -Currently not on antihypertensive meds GERD -On PPI Hyperkalemia, now resolved -5.7 on admission -Continue to monitor electrolytes Tobacco abuse -Smokes 5-10 cigarette per day -Counseled for cessation -Nicotine patch when necessary Hx DVT -On Xarelto -Will hold for now, pending recommendation from General Surgery Hx Crack/Cocaine Abuse -UDS negative History Interval history: patient with acute cholecystitis Less abdominal pain Hospitalist Physical - Physical exam Narrative exam: Gen: Not in acute distress, lying in bed,obese HEENT: Normocephalic, atraumatic Neck: supple, no JVD Heart: S1 and S2 reg, no murmurs, rubs or gallop Lungs: Clear to auscultation, no rhonchi, no wheeze Abd: soft, mild tender RUQ, no rebound tenderness, normal BS, Ext: No edema, no clubbing, no cyanosis Neuro: Awake, alert, oriented X 3, no focal neurological signs - Constitutional Vitals: Temp Pulse Resp BP Pulse Ox 97.9 F 79 20 136/79 98 12/20/18 07:37 12/20/18 07:37 12/20/18 07:37 12/20/18 07:37 12/20/18 07:37 Results - Labs CBC & Chem 7: 12/20/18 06:57 12/20/18 06:57 Labs: Laboratory Last Values WBC 3.6 K/mm3 (4.5-11.0) L 12/20/18 06:57 RBC 5.55 M/mm3 (3.65-5.03) H 12/20/18 06:57 Hgb 16.1 gm/dl (10.1-14.3) H 12/20/18 06:57 Hct 47.9 % (30.3-42.9) H 12/20/18 06:57 MCV 86 fl (79-97) 12/20/18 06:57 MCH 29 pg (28-32) 12/20/18 06:57 MCHC 34 % (30-34) 12/20/18 06:57 RDW 15.6 % (13.2-15.2) H 12/20/18 06:57 Plt Count 285 K/mm3 (140-440) 12/20/18 06:57 Lymph % (Auto) 45.0 % (13.4-35.0) H 12/20/18 06:57 [place] % (Auto) 8.8 % (0.0-7.3) H 12/20/18 06:57 Eos % (Auto) 1.3 % (0.0-4.3) 12/20/18 06:57 Baso % (Auto) 1.4 % (0.0-1.8) 12/20/18 06:57 Lymph # 1.6 K/mm3 (1.2-5.4) 12/20/18 06:57 [place] # 0.3 K/mm3 (0.0-0.8) 12/20/18 06:57 Eos # 0.0 K/mm3 (0.0-0.4) 12/20/18 06:57 Baso # 0.1 K/mm3 (0.0-0.1) 12/20/18 06:57 Seg Neutrophils % 43.5 % (40.0-70.0) 12/20/18 06:57 Seg Neutrophils # 1.6 K/mm3 (1.8-7.7) L 12/20/18 06:57 Sodium 140 mmol/L (137-145) 12/20/18 06:57 Potassium 4.9 mmol/L (3.6-5.0) D 12/20/18 06:57 Chloride 103.4 mmol/L (98-107) 12/20/18 06:57 Carbon Dioxide 22 mmol/L (22-30) 12/20/18 06:57 Anion Gap 20 mmol/L 12/20/18 06:57 BUN 7 mg/dL (7-17) 12/20/18 06:57 Creatinine 0.6 mg/dL (0.7-1.2) L 12/20/18 06:57 Estimated GFR > 60 ml/min 12/20/18 06:57 BUN/Creatinine Ratio 12 % 12/20/18 06:57 Glucose 86 mg/dL (65-100) 12/20/18 06:57 Calcium 9.7 mg/dL (8.4-10.2) 12/20/18 06:57 Total Bilirubin 0.20 mg/dL (0.1-1.2) 12/18/18 18:40 AST 35 units/L (5-40) 12/18/18 18:40 ALT 20 units/L (7-56) 12/18/18 18:40 Alkaline Phosphatase 85 units/L (35-129) 12/18/18 18:40 Troponin T < 0.010 ng/mL (0.00-0.029) 12/19/18 00:29 NT-Pro-B Natriuret Pep 424.1 pg/mL (0-900) 12/18/18 20:05 Total Protein 8.3 g/dL (6.3-8.2) H 12/18/18 18:40 Albumin 4.1 g/dL (3.9-5) 12/18/18 18:40 Albumin/Globulin Ratio 1.0 % 12/18/18 18:40 Urine Color Straw (Yellow) 12/18/18 18:59 Urine Turbidity Clear (Clear) 12/18/18 18:59 Urine pH 7.0 (5.0-7.0) 12/18/18 18:59 Ur Specific [place] 1.014 (1.003-1.030) 12/18/18 18:59 Urine Protein <15 mg/dl mg/dL (Negative) 12/18/18 18:59 Urine Glucose (UA) Neg mg/dL (Negative) 12/18/18 18:59 Urine Ketones Neg mg/dL (Negative) 12/18/18 18:59 Urine Blood Neg (Negative) 12/18/18 18:59 Urine Nitrite Neg (Negative) 12/18/18 18:59 Urine Bilirubin Neg (Negative) 12/18/18 18:59 Urine Urobilinogen < 2.0 mg/dL (<2.0) 12/18/18 18:59 Ur Leukocyte Esterase Neg (Negative) 12/18/18 18:59 Urine WBC (Auto) < 1.0 /HPF (0.0-6.0) 12/18/18 18:59 Urine RBC (Auto) 1.0 /HPF (0.0-6.0) 12/18/18 18:59 U Epithel Cells (Auto) 1.0 /HPF (0-13.0) 12/18/18 18:59 Urine Opiates Screen Presumptive negative 12/18/18 Unknown Urine Methadone Screen Presumptive negative 12/18/18 Unknown Ur Barbiturates Screen Presumptive negative 12/18/18 Unknown Ur Phencyclidine Scrn Presumptive negative 12/18/18 Unknown Ur Amphetamines Screen Presumptive negative 12/18/18 Unknown U Benzodiazepines Scrn Presumptive negative 12/18/18 Unknown Urine Cocaine Screen Presumptive negative 12/18/18 Unknown U Marijuana (THC) Screen Presumptive negative 12/18/18 Unknown Drugs of Abuse Note Disclamer 12/18/18 Unknown Active Medications - Current Medications Current Medications: Generic Name Dose Route Start Last Admin Trade Name Freq PRN Reason Stop Dose Admin Acetaminophen 650 mg 12/19/18 02:26 Tylenol PO Q4H PRN Pain MILD(1-3)/Fever >100.5/SCHUSTER Acetaminophen 1,000 mg 12/20/18 12:00 Tylenol PO 12/20/18 12:01 PREOP ONE Cyclobenzaprine HCl 10 mg 12/19/18 10:00 12/20/18 09:42 Flexeril PO 10 mg BID BRYANT Administration Enoxaparin Sodium 40 mg 12/19/18 10:00 12/20/18 09:42 Lovenox SUB-Q 40 mg QDAY BRYANT Administration Ferrous Sulfate 325 mg 12/19/18 10:00 12/20/18 09:42 Feosol PO 325 mg BID BRYANT Administration Gabapentin 600 mg 12/19/18 08:00 12/20/18 08:31 Neurontin PO 600 mg TID BRYANT Administration Gabapentin 1,200 mg 12/20/18 12:00 Neurontin PO PREOP BRYANT Hydralazine HCl 10 mg 12/19/18 02:51 12/19/18 21:32 Apresoline IV 10 mg Q4H PRN Administration BP >160/100 Hydromorphone HCl 0.5 mg 12/19/18 02:26 Dilaudid IV Q3H PRN Pain , Severe (7-10) Sodium Chloride 1,000 mls @ 100 mls/hr 12/19/18 03:00 12/20/18 06:33 Nacl 0.9% 1000 Ml IV 100 mls/hr DIRECT BRYANT Administration Piperacillin Sod/Tazobactam Sod 3.375 gm in 50 mls @ 100 mls/hr 12/19/18 10:00 12/20/18 09:42 Zosyn/Ns 3.375gm/50ml IV 100 mls/hr Q8H BRYANT Administration Protocol Metoclopramide HCl 10 mg 12/19/18 02:26 Reglan IV Q6H PRN Nausea And Vomiting Morphine Sulfate 2 mg 12/19/18 02:26 12/20/18 06:34 Morphine IV 2 mg Q4H PRN Administration Pain, Moderate (4-6) Nicotine 14 mg 12/19/18 10:00 12/20/18 09:41 Habitrol TD 14 mg QDAY BRYANT Administration Ondansetron HCl 4 mg 12/19/18 02:26 Zofran IV Q8H PRN Nausea And Vomiting Pantoprazole Sodium 40 mg 12/19/18 10:00 12/20/18 09:42 Protonix PO 40 mg BID BRYANT Administration Sodium Chloride 10 ml 12/19/18 10:00 12/19/18 21:33 Sodium Chloride Flush Syringe 10 Ml IV 10 ml BID BRYANT Administration Sodium Chloride 10 ml 12/19/18 02:26 Sodium Chloride Flush Syringe 10 Ml IV PRN PRN LINE FLUSH
[2018-12-20] MEDS ORDERED: GABAPENTIN 400 MG CAP PO SCH (12:00)
[2018-12-20] MEDS ORDERED: ACETAMINOPHEN 500 MG TAB PO ONE (12:00)
[2018-12-20] MEDS ORDERED: LIDOCAINE (1%) 10 MG/1 ML VIAL 20 ML MDV ONE (12:50)
[2018-12-20] MEDS ORDERED: BUPIVACAINE-EPINEPHRINE/PF 0.5%-1:200,000 (30 ML) VIAL INFILTRATI ONE ×2 (12:50→14:55)
[2018-12-20] MEDS ORDERED: LACTATED RINGERS 1,000 ML ONE (13:09)
[2018-12-20] MEDS ORDERED: LIDOCAINE MPF (2%) 20 MG/1 ML VIAL 5 ML ONE (13:50)
[2018-12-20] MEDS ORDERED: fentaNYL 100 MCG/2 ML INJ ONE (13:51)
[2018-12-20] MEDS ORDERED: PROPOFOL 200 MG/20 ML VIAL IV ONE (13:51)
[2018-12-20] MEDS ORDERED: LACTATED RINGERS 1,000 ML IV SCH (14:00)
[2018-12-20] MEDS ORDERED: LIDOCAINE (1%) 10 MG/1 ML VIAL 20 ML MDV INFILTRATI ONE (14:55)
[2018-12-20] MEDS ORDERED: fentaNYL 250 MCG/5 ML INJ ONE (14:55)
[2018-12-20] MEDS ORDERED: SODIUM CHLORIDE 0.9% IRR 1,500 ML BOTTLE IR ONE (14:56)
[2018-12-20] MEDS ORDERED: ONDANSETRON 4 MG/2 ML INJ ONE (15:41)
[2018-12-20] MEDS ORDERED: HYDROmorphone 1 MG/1 ML INJ ONE (15:41)
[2018-12-20] MEDS ORDERED: dexAMETHasone 20 MG/5 ML VIAL ONE (15:41)
--- NOTE | 2018-12-20 15:53 | Post Operative Note ---
Date of procedure: 12/20/18 (Dictation:[id number]) Pre-op diagnosis: acute cholecystitis Post-op diagnosis: same Findings: markedly enlarged GB with adhesions to adjacent organs. Large cystic duct. Procedure: robotic assisted lap walter and lay lysis of adhesions. IVF 1100cc EBL ~15cc Anesthesia: GETA Surgeon: MUSTAPHA GARCIA Plastics Technician: CHITRA THOMPSON Estimated blood loss: minimal Pathology: list (gallbladder) Specimen disposition: to lab Condition: stable Disposition: PACU
[2018-12-20] MEDS ORDERED: HYDROcodone/ACETAMINOPHEN 5-325 MG TAB PO PRN (15:54)
[2018-12-20] MEDS ORDERED: HYDROmorphone 1 MG/1 ML INJ IV PRN (16:16)
--- NOTE | 2018-12-20 21:45 | Operative Report ---
PREOPERATIVE DIAGNOSIS: Acute cholecystitis. POSTOPERATIVE DIAGNOSIS: Acute cholecystitis. PROCEDURE: 1. Robotic-assisted laparoscopic cholecystectomy. 2. Robotic-assisted laparoscopic lysis of adhesions. ATTENDING PHYSICIAN: Bari Saucedo MD ORTHOPAEDIC NURSE: Dr. Chau. ANESTHESIA: General. ESTIMATED BLOOD LOSS: Minimal. FLUIDS: 1100 mL. FINDINGS: Markedly distended gallbladder with adhesions to the surrounding tissue. Edema was noted in the gallbladder bed. Cystic duct was noted to be prominent. SPECIMENS: Gallbladder. DRAINS: None. DISPOSITION: Stable, transferred to Recovery Room. INDICATIONS: This is a 63-year-old female who presented to the Emergency Room with abdominal pain, nausea, and vomiting. The patient was assessed to have acute cholecystitis. Antibiotics were started. General Surgery was consulted. The patient is assessed to be in need for cholecystectomy. Procedure, risks, and benefits were explained to the patient. Risks included, but were not limited to infection, bleeding, pain, injury to surrounding structures, possible need for further procedures in the future. The patient understood and consented. OPERATIVE NOTE: The patient was brought to the operating room and placed on the table in supine position. After adequate general anesthesia was established, SCDs were placed. Cullen catheter was placed. Arms were tucked. Pressure points were padded. Antibiotics had already been given on the floor. Sterile prep and drape was performed. Time-out was called. I began by placing a Veress needle in the left upper quadrant. I was able to insufflate on the first attempt. This was replaced with a 5-mm port. We inserted using the Optiview technique. I entered the peritoneal cavity safely. There was no injury to the underlying structures. We did note adhesions underneath her lower midline incision. We were able to place a 12-mm port just adjacent to the adhesions near the umbilicus. I used a part of her old incision. We then placed two 8-mm ports in the right side of the abdomen and then replaced the 5-mm port with an 8. Gauze was inserted into the abdomen. We saw that the gallbladder was markedly distended. Using an aspiration needle, we aspirated about 40-50 mL of dark green bile. There was no odor or appearance to suggest infection in the bowel. We then docked the robot. I proceeded to the console. Robotically, I took down some of the adhesions to reduce the interference with the camera. We did this with a combination of electrocautery and sharp dissection. I then proceeded to take down all the adhesions around the gallbladder. It was mainly omentum. However, the stomach and duodenum were in very close proximity such that I carefully proceeded in taking down the adhesions once I got further down the gallbladder; however, once this was done, I was able to grab the gallbladder and elevate it over the liver edge. We dissected out the triangle of [place]ot. I had a very nice critical view developed. We dissected out the cystic artery, which appeared to branch near the gallbladder as well as the thickened cystic duct. We took extra time to do a little bit more dissection around that area just because the duct appeared prominent; however, it clearly was going into the gallbladder. We had a very large critical view. Therefore, I did not feel as though the common duct had been pulled up and was tented up. There was nothing to suggest that the common duct was adjacent to the gallbladder. Dr. Chau agreed. I then proceeded to place 2 clips distally on the cystic duct, 1 proximally in relation to gallbladder. When I did as a precaution, I tried to keep it as close to the gallbladder as possible to minimize any injury in case the common duct was close by and I just was unable to appreciate it. Cystic duct was divided. Clips were placed on the cystic artery and that was divided. We then removed the gallbladder from the bed with electrocautery. We had a very nice dissection plane. There was no bleeding in the liver bed. Gallbladder was left inside. We checked again the clips, they were clearly in place. There was no leakage of any bile or bleeding. Everything looked very good. We then converted back to a laparoscopic case. When I had taken down the adhesions near the camera port, we made sure there was no active bleeding and there was none. We removed the gauze that had been placed and then removed the EndoCatch bag very easily. Using a Chivo-Sarah fascial closure device, I closed the camera port site with an 0 Vicryl stitch. It came together very nicely. Local had been injected at the beginning and we injected more at the end. We desufflated the abdomen, removed all the ports. There was no bleeding from any of the port sites. After local was injected, 4-0 Monocryl subcuticular stitches were placed in all the port sites. Skin was cleaned and dried. Dermabond was placed. The patient tolerated the procedure well. There were no complications. All counts were correct at the end of the case. I spoke with the brother at the end of the case. He was very appreciative. JOB# [id number] GUILHERME/PRISCILA
[2018-12-21] MEDS ORDERED: PIPERACILLIN/TAZOBACTAM 3.375 3.375 GM/50 ML BAG IV SCH (02:00)
[2018-12-21] MEDS: GABAPENTIN 300 MG CAP PO SCH (07:37)
[2018-12-21] MEDS: CYCLOBENZAPRINE 10 MG TAB PO SCH (07:38)
[2018-12-21] MEDS: PANTOPRAZOLE 40 MG TAB PO SCH (07:38)
[2018-12-21] MEDS: NICOTINE 14 MG/24 HR PATCH TD SCH (07:38)
[2018-12-21] MEDS: ENOXAPARIN 40 MG/0.4 ML INJ SUB-Q SCH (07:38)
[2018-12-21] MEDS: FERROUS SULFATE 325 MG TAB PO SCH (07:38)
--- NOTE | 2018-12-21 11:38 | Progress Note ---
Assessment and Plan - Patient Problems (1) Cholelithiasis with acute cholecystitis Current Visit: Yes Status: Acute Qualifiers: Biliary obstruction: without biliary obstruction Qualified Code(s): K80.00 - Calculus of gallbladder with acute cholecystitis without obstruction Plan to address problem: Pt stable. s/p robotic cholecystectomy. Pt stable. Ok to d/c home Rec: 1) d/c home 2) diet as tolerated 3) may shower tomorrow. pat dry wounds 4) f/u 2 weeks Please call with questions. Subjective Date of service: 12/21/18 Patient Reports: Positive: no new complaints, feels better. Negative: nausea, vomiting Objective Vital Signs - 12hr 12/20/18 12/21/18 12/21/18 23:57 04:55 05:58 Temperature 98.0 F 97.7 F Pulse Rate 108 H 94 H Respiratory 16 16 Rate Blood Pressure 140/79 125/77 O2 Sat by Pulse 93 95 98 Oximetry 12/21/18 07:02 Temperature 98.3 F Pulse Rate 91 H Respiratory 18 Rate Blood Pressure 140/74 O2 Sat by Pulse 100 Oximetry - General physical appearance no distress, no pain - Respiratory normal expansion, normal respiratory effort - Abdomen soft, not distended, surgical scars (C/D/I) - Integumentary no rash, no growths, no abnormal pigmentation - Labs 12/20/18 06:57 12/20/18 06:57
--- NOTE | 2018-12-21 11:50 | Discharge Summary ---
Providers - Providers Date of Admission: 12/19/18 04:30 Date of discharge: 12/21/18 Attending physician: ART TURNER 12/19/18 02:22 Consult to Physician [CONS] Routine Comment: Consulting Provider: NIYA HASTINGS Physician Instructions: Reason For Exam: cholecystitis Primary care physician: HEALTH CARE AIDE Hospitalization Condition: Fair Hospital course: Patient is 63year-old -[place] female with history of hypertension, GERD, crack/cocaine abuse, chronic back pain, DVT on Xarelto who presents to [facility] ED with complaints of abdominal pain, nausea and vomiting for 1 week. She was diagnosed with acute cholecystitis due to cholelithiasis, was admitted. Surgeon, Dr. Hastings did robotic cholecystectomy on 12/20/18. post-op was uneventful and she was discharged home next day. Acute cholecystitis due to Cholelithiasis -US Abdomen showed Cholelithiasis with mild gallbladder wall thickening -s/p robotic cholecystectomy on 12/20/18 HTN -Monitor BP GERD -On PPI Hyperkalemia, now resolved Tobacco abuse -Smokes 5-10 cigarette per day -Counseled for cessation -Nicotine patch when necessary Hx of DVT Xarelto resumed, post opas recommended by General Surgeon Hx Crack/Cocaine Abuse -UDS negative Total time spent , 32 mins Disposition: - TO HOME OR SELFCARE - Discharge Diagnoses (1) S/P cholecystectomy Status: Acute (2) HTN (hypertension) Status: Acute (3) Obesity (BMI 30.0-34.9) Status: Acute (4) Cholelithiasis with acute cholecystitis Status: Acute Qualifiers: Biliary obstruction: without biliary obstruction Qualified Code(s): K80.00 - Calculus of gallbladder with acute cholecystitis without obstruction Core Measure Documentation - Palliative Care Palliative Care/ Comfort Measures: Not Applicable - Core Measures Any of the following diagnoses?: none Exam - Constitutional Vitals: Temp Pulse Resp BP Pulse Ox 98.3 F 91 H 18 140/74 100 12/21/18 07:02 12/21/18 07:02 12/21/18 07:02 12/21/18 07:02 12/21/18 07:02 Plan Activity: other (can shower from tomorrow 12/22/18) Diet: low fat, low cholesterol, low salt Plan of Treatment: 1.Follow up with PCP in 1 week. 2.Follow up with Dr. Saucedo, surgeon in 2 weeks Follow up with: PRIMARY CARE, [Primary Care Provider] - 3-5 Days Prescriptions: oxyCODONE /ACETAMINOPHEN [Percocet 5/325 mg] 1 tab PO Q6HR PRN #15 tablet PRN Reason: Pain
[2018-12-21 12:23] VITALS: BP 118/68
[2018-12-25 01:38] LABS: Albumin 3.5 g/dL (3.8-4.8); Gamma Globulin 1.2 g/dL (0.8-1.7)
[2018-12-26 06:34] LABS: Abnormal Protein Band 1 SEE SCANNED RESULT; Abnormal Protein Band 2 SEE SCANNED RESULT; Albumin SEE SCANNED RESULT; Creatinine, Random Urine SEE SCANNED RESULT; Gamma Globulin SEE SCANNED RESULT; Interpretation SEE SCANNED RESULT; Protein/Creatinine Ratio SEE SCANNED RESULT
== END 2018-12-21 13:14 | disposition home or self-care (01) | DRG 419 ==
LOC: ED 15:52 → 3B-SURG 12-19 04:30
PROVIDERS: ADMIT Internal Medicine; ATTEND Internal Medicine
PROC: 0FT44ZZ Resection of Gallbladder, Percutaneous Endoscopic Approach (ICD-10-PCS; principal; 2018-12-20)
PROC: 8E0W4CZ Robotic Assisted Procedure of Trunk Region, Percutaneous Endoscopic Approach (ICD-10-PCS; 2018-12-20)
DX: K80.00 Calculus of gallbladder with acute cholecystitis without obstruction (principal); I10 Essential (primary) hypertension; F14.10 Cocaine abuse, uncomplicated; F17.210 Nicotine dependence, cigarettes, uncomplicated; G62.9 Polyneuropathy, unspecified; K82.8 Other specified diseases of gallbladder; G89.29 Other chronic pain; K21.9 Gastro-esophageal reflux disease without esophagitis; E87.5 Hyperkalemia; Z86.718 Personal history of other venous thrombosis and embolism; Z79.01 Long term (current) use of anticoagulants; Z98.51 Tubal ligation status; Z88.6 Allergy status to analgesic agent; Z71.6 Tobacco abuse counseling
CPT/HCPCS: 36415; 71046; 76705; 80048; 80053; 80307; 81001; 83880; 84132; 84165; 84166; 84484; 85025; 88304; 93005; 93010; G0378; J0360; J1100; J1170; J1650; J2270; J2405; J2543; J2704; J3010; J7030; J7120